=== PATIENT | male | born 1990 | race Caucasian/White ===

== ENCOUNTER 2017-01-16 18:42 | Emergency (ER) | payer OTHER ==
[~2017-01-16] VITALS: Ht 167.6 cm; Wt 74.8 kg
[~2017-01-16 18:42] MED LIST: CLONAZEPAM 1 MG1 M1 PO; FLOMAX0.4 MG PO; IBUPROFEN 600600 M1 PO; KEPPRA1000 MG PO; NAPROSYN500 MG PO; NORCO 5-325 TA1 EACH PO
[2017-01-16 19:23] LABS: URINE BILIRUBIN NEGATIVE (Negative); URINE BLOOD 3+ (Negative); URINE COLOR YELLOW; URINE GLUCOSE-RANDOM* NEGATIVE (Negative); URINE KETONES NEGATIVE (Negative); URINE LEUKOCYTES-REFLEX NEGATIVE (Negative); URINE PROTEIN (DIPSTICK) NEGATIVE (Negative); URINE SPECIFIC GRAVITY 1.015 (1.003-1.035); URINE UROBILINOGEN 0.2 E.U./dl (0.2-1.0)
[2017-01-16 19:29] LABS: HEMOGLOBIN 14.5 gm/dL (14.0-18.0); MCH 33.7 pg (26.0-34.0); MCHC 35.5 g/dL (28.0-37.0); MCV 95.1 fL (80.0-100.0); PLATELET COUNT 196 thou/uL (150-400); RBC 4.31 mil/uL (4.50-6.00); RDW 12.6 % (10.5-14.5); WBC 6.8 thou/uL (4.0-11.0)
[2017-01-16 19:30] LABS: CASTS None Seen /LPF (None Seen); SQUAMOUS None Seen /LPF (0-3); URINE RBC >20 Many /HPF (0-2); URINE WBC-REFLEX 0-5 Rare /HPF (0-5)
[2017-01-16 19:31] LABS: CRYSTALS None Seen /LPF (None Seen)
[2017-01-16 19:33] LABS: MANUAL DIFF YES
[2017-01-16 19:34] LABS: CALCIUM 9.1 mg/dL (8.5-10.1); CREATININE 1.2 mg/dL (0.6-1.3)
[2017-01-16 20:05] LABS: ABSOLUTE NEUTROPHILS 4.7 thou/uL (1.4-8.2); TOTAL CELL COUNT 100
[2017-01-16] MEDS ORDERED: HYDROCODONE-AP1 EAC6 PO (20:12)
[2017-01-16] MEDS ORDERED: ONDANSETRON HCL4 M2 PO (20:12)
[2017-01-16] MEDS ORDERED: FLOMAX0.4 MG PO (20:12)
== END 2017-01-16 20:24 | disposition home or self-care (01) ==
LOC: ER 18:42
PROVIDERS: Emergency Medicine; Physician Assistant
DX: R10.9 Unspecified abdominal pain (principal); Z87.891 Personal history of nicotine dependence